=== PATIENT | female | born 1975 | race Caucasian/White ===

== ENCOUNTER 2017-05-16 15:57 | Emergency (ER) | payer OTHER ==
[~2017-05-16] VITALS: Wt 90.7 kg
[~2017-05-16 15:57] MED LIST: AMOXICILLIN500 MG PO; ANAPROX DS550 MG PO; AUGMENTIN 875 M1 TAB PO; CELEXA10 MG PO; CIPRODEX 0.3%-7.5 ML OT; CLARITIN10 MG PO; DIFLUCAN150 MG PO; IRON PO; KEFLEX500 MG PO
[2017-05-16] MEDS ORDERED: Motrin,Rufen800 MG PO (18:41)
== END 2017-05-16 18:45 | disposition home or self-care (01) ==
LOC: ED 15:57
DX: S50.02XA Contusion of left elbow, initial encounter (principal); S00.83XA Contusion of other part of head, initial encounter; S80.02XA Contusion of left knee, initial encounter; F17.200 Nicotine dependence, unspecified, uncomplicated; Z98.51 Tubal ligation status; Z98.890 Other specified postprocedural states; Z79.899 Other long term (current) drug therapy; Z88.1 Allergy status to other antibiotic agents; V49.59XA Passenger injured in collision with other motor vehicles in traffic accident, initial encounter; Y93.89 Activity, other specified; Y92.413 State road as the place of occurrence of the external cause; Y99.9 Unspecified external cause status